=== PATIENT | male | born 1955 | race American Indian/Alaskan Native ===

== ENCOUNTER 2021-03-22 00:08 | Emergency (ER) | payer MEDICARE ==
--- NOTE | 2021-03-22 02:08 | XRay Report ---
CHEST 2 VIEWS INDICATION / CLINICAL INFORMATION: Dyspnea. COMPARISON: None available. FINDINGS: SUPPORT DEVICES: None. HEART / MEDIASTINUM: No significant abnormality. LUNGS / PLEURA: No significant pulmonary abnormality. No significant pleural effusion. No pneumothora x. ADDITIONAL FINDINGS: No significant additional findings. IMPRESSION: 1. No acute abnormality of the chest. Signer Name: Ranulfo Sanabria MD Signed: 03/22/2021 2:03 AM Workstation Name: [id number]
[2021-03-22 02:10] LABS: Basophils % (Auto) 0.3 % (0.0-1.8); Eosinophils % (Auto) 0.4 % (0.0-4.3); Hematocrit 39.7 % (35.5-45.6); Hemoglobin 14.1 gm/dl (11.8-15.2); Lymphocytes # (Auto) 0.8 K/mm3 (1.2-5.4); Lymphocytes % (Auto) 8.3 % (13.4-35.0); Mean Corpuscular HGB Conc 36 % (32-34); Mean Corpuscular Volume 89 fl (84-94); Monocytes # (Auto) 0.5 K/mm3 (0.0-0.8); Monocytes % (Auto) 5.1 % (0.0-7.3); Platelet Count 174 K/mm3 (140-440); Red Blood Count 4.46 M/mm3 (3.65-5.03); Red Cell Distribution Width 13.8 % (13.2-15.2)
--- NOTE | 2021-03-22 08:05 | Emergency Department Report ---
ED Shortness of Breath HPI - General Chief Complaint: Dyspnea/Respdistress Stated Complaint: CHILLS/SOB Time Seen by Provider: 03/22/21 07:55 Source: patient Mode of arrival: Ambulatory Limitations: No Limitations - History of Present Illness Initial Comments: 65-year-old male, history of HIV with undetectable viral load, presents to the ED with chills. Patient states he began having chills at around 11 PM last night. Patient states during these episodes of having the chills, he would become short of breath. Patient states he called the [facility] nurse line and they told him to come to the ER. Patient did not take any Motrin or Tylenol prior to ED arrival. Patient states his chills have now resolved. He denies any current shortness of breath. Patient denies any cough, headache, vomiting, diarrhea, abdominal pain, dysuria, urinary frequency. Patient reports he has received the COVID-19 vaccine. MD Complaint: shortness of breath -: Last night Severity: mild Quality: other (Painless) Consistency: now resolved Improves With: nothing Worsens With: other (Chills) - Related Data Allergies Allergy/AdvReac Type Severity Reaction Status Date / Time No Known Allergies Allergy Unverified 03/22/21 01:20 ED Review of Systems ROS: Stated complaint: CHILLS/SOB Other details as noted in HPI Comment: All other systems reviewed and negative Constitutional: chills ENT: denies: congestion Respiratory: shortness of breath. denies: cough Cardiovascular: denies: chest pain Gastrointestinal: denies: abdominal pain, vomiting, diarrhea Genitourinary: denies: dysuria, frequency Neurological: denies: headache ED Physical Exam - General Limitations: No Limitations General appearance: alert, in no apparent distress - Head Head exam: Present: atraumatic, normocephalic - Eye Eye exam: Present: normal appearance, EOMI - ENT ENT exam: Present: mucous membranes moist - Neck Neck exam: Present: normal inspection - Respiratory Respiratory exam: Present: normal lung sounds bilaterally. Absent: respiratory distress - Cardiovascular Cardiovascular Exam: Present: regular rate, normal rhythm - GI/Abdominal GI/Abdominal exam: Present: soft. Absent: distended, tenderness - Extremities Exam Extremities exam: Present: normal inspection - Neurological Exam Neurological exam: Present: alert, oriented X3 - Psychiatric Psychiatric exam: Present: normal affect, normal mood - Skin Skin exam: Present: warm, dry, intact, normal color ED Course Vital Signs 03/22/21 03/22/21 03/22/21 01:18 08:20 08:24 Temperature 100.8 F H 98.1 F Pulse Rate 133 H 88 Respiratory 18 16 Rate Blood Pressure 115/77 Blood Pressure 156/99 [Right] O2 Sat by Pulse 95 99 98 Oximetry 03/22/21 03/22/21 03/22/21 08:25 08:26 08:28 Temperature Pulse Rate Respiratory 16 Rate Blood Pressure 156/99 156/99 156/99 Blood Pressure [Right] O2 Sat by Pulse 98 98 97 Oximetry 03/22/21 09:16 Temperature Pulse Rate 76 Respiratory 16 Rate Blood Pressure Blood Pressure 137/84 [Right] O2 Sat by Pulse 96 Oximetry ED Medical Decision Making - Lab Data Result diagrams: 03/22/21 01:48 03/22/21 01:48 - Radiology Data Radiology results: report reviewed, image reviewed - Medical Decision Making 65-year-old male presents to ED with complaint of chills and associated shortness of breath only with chills. Patient is in no respiratory distress. O2 sats are normal. Upon initial presentation, patient had low-grade fever 1 00.8. This resolved without any antipyretics. Patient has no other symptoms. Chest x-ray is normal. Patient states he cannot give a urine sample at this time. Refusing straight cath. Patient denies any UTI symptoms. Will discharge home at this time. Patient has been advised to return to the ER if symptoms worsen. He is also been advised to take Motrin and Tylenol for fever control. - Differential Diagnosis Viral infection, UTI, pneumonia Critical care attestation.: If time is entered above; I have spent that time in minutes in the direct care of this critically ill patient, excluding procedure time. ED Disposition Clinical Impression: Fever and chills Disposition: DC-01 TO HOME OR SELFCARE Is pt being admited?: No Condition: Stable Instructions: Fever, Adult, [id number] Additional Instructions: Outpatient COVID testing is recommended. Take tylenol or ibuprofen as directed per packaging for fever and chills. Referrals: CHERYL CHAWLA [Other] - 3-5 Days Time of Disposition: 09:09
[2021-03-22 09:17] VITALS: BP 137/84
== END 2021-03-22 09:17 | disposition home or self-care (01) ==
LOC: ED 00:08
DX: R50.9 Fever, unspecified (principal)
CPT/HCPCS: 36415; 71046; 80048; 85025